=== PATIENT | female | born 1990 | race Caucasian/White ===

== ENCOUNTER 2022-08-24 19:08 | Emergency (ER) | payer BC ==
[2022-08-24] MEDS ORDERED: Ibuprofen 200 MG TAB ONE (19:39)
[2022-08-24] MEDS ORDERED: Acetaminophen 325 MG TAB ONE (19:39)
[2022-08-24] MEDS ORDERED: Cyclobenzaprine 10 MG TAB ONE (19:39)
== END 2022-08-24 20:24 | disposition home or self-care (01) ==
LOC: ERS 19:08
DX: S00.93XA Contusion of unspecified part of head, initial encounter (principal); W18.30XA Fall on same level, unspecified, initial encounter
CPT/HCPCS: 99283